=== PATIENT | female | born 1985 ===

== ENCOUNTER 2020-03-04 09:39 | Inpatient (IN) ==
[2020-03-04] MEDS ORDERED: Buffered Lidocaine 1% SYRIN 1 ml INTRADERM ONE (10:53)
[2020-03-04] MEDS ORDERED: Lactated Ringers 1000 ml BAG 1,000 ML IV ONE ×2 (10:53→12:04)
[2020-03-04] MEDS ORDERED: Lactated Ringers 1000 ml BAG 1,000 ML IV SCH ×3 (11:00→13:00)
[2020-03-04 11:23] LABS: ABS Monocytes 0.8 10^3/ul (0-0.8); ABS Neutrophils 7.5 10^3/ul (1.5-7.7); Eosinophil % 0.3 %; Hematocrit 38 % (35-47); Hemoglobin 13.2 g/dL (12.0-16.0); Lymphocyte % 10.5 %; Mean Corpuscular HGB Conc 35 g/dL (31-36); Mean Corpuscular Hemoglobin 32 pg (27-31); Mean Corpuscular Volume 91 fL (80-97); Mean Platelet Volume 9.1 fL (7.4-10.4); Platelet Count 206 10^3/uL (150-450); Red Blood Count 4.16 10^6 /uL (3.70-4.87); Red Cell Distribution Width 14 % (10-15); White Blood Count 9.3 10^3/uL (3.5-10.8)
[2020-03-04] MEDS ORDERED: OBEPIDURAL 250 ML EPIDURAL ONE (11:26)
[2020-03-04 11:53] LABS: Urine Benzodiazepine Screen None Detected (None Detect); Urine Cannabinoids Screen None Detected (None Detect); Urine Opiates Screen None Detected (None Detect)
[2020-03-04] MEDS ORDERED: Lactated Ringers 1000 ml BAG 500 ML IV PRN ×2 (12:04)
[2020-03-04] MEDS ORDERED: Sodium Citrate/Citric Acid LIQ 15 ML UDC PO PRN (12:04)
[2020-03-04] MEDS ORDERED: Phenylephrine 40 mcg/mL 10mL (400mcg) SYRINGE IV PUSH PRN ×2 (12:04)
[2020-03-04] MEDS ORDERED: OBEPIDURAL 250 ML EPIDURAL SCH (13:00)
[2020-03-04] MEDS ORDERED: Oxytocin in LR 20 UNITS/1,000 ML BAG IVPB SCH (17:00)
[2020-03-05] MEDS ORDERED: fentaNYL 100 mcg/2 ml 50 MCG/ML VIAL ONE ×3 (00:59→06:38)
[2020-03-05] MEDS ORDERED: Lidocaine 2% w/ EPI 1:200,000 MPF 20 ML SDV VIAL ONE ×3 (01:15→06:54)
[2020-03-05] MEDS ORDERED: Ampicillin ADVAN 2 GM in NS 0.9% 100 ml BAG 100 ML IVPB SCH (01:30)
[2020-03-05] MEDS: Gentamicin ADULT 360 MG in NS 0.9% 100 ml BAG 100 ML IVPB SCH (02:09)
[2020-03-05] MEDS ORDERED: ceFOXitin 2 GM IVPREMIX 2 GM/50 ML BAG ONE (05:42)
[2020-03-05] MEDS ORDERED: ceFOXitin 2 GM IVPREMIX 2 GM/50 ML BAG IVPB ONE (05:59)
[2020-03-05] MEDS ORDERED: Sodium Bicarbonate 8.4% VIAL 1 MEQ/ML 50 ml VIAL (50 meq) ONE (06:29)
[2020-03-05] MEDS ORDERED: Oxytocin 10 UNITS/ML 1 ML VIAL ONE ×2 (06:30→07:11)
[2020-03-05] MEDS ORDERED: Chloroprocaine 3% 20 ml VIAL ONE (06:36)
[2020-03-05] MEDS ORDERED: Phenylephrine 40 mcg/mL 10mL (400mcg) SYRINGE ONE (06:51)
[2020-03-05] MEDS ORDERED: Lidocaine 1% VIAL 10 MG/ML VIAL ONE (07:05)
[2020-03-05] MEDS ORDERED: Naloxone 0.4 mg VIAL 0.4 mg/ml 1 ml VIAL IV PRN ×2 (07:06→18:01)
[2020-03-05] MEDS ORDERED: Ondansetron 4 mg VIAL 2 MG/ML 2 ml VIAL IV PRN (07:06)
[2020-03-05] MEDS ORDERED: fentaNYL 100 mcg/2 ml 50 MCG/ML VIAL IV PRN (07:06)
[2020-03-05] MEDS ORDERED: DiMENhydriNATE IV 50 mg/ml 1 ml VIAL ONE (07:08)
[2020-03-05] MEDS ORDERED: Witch Hazel PAD JAR TOPICAL PRN ×2 (07:35→07:37)
[2020-03-05] MEDS ORDERED: Glycerin ADULT 2.4 gm SUPP PR PRN ×2 (07:35→07:37)
[2020-03-05] MEDS ORDERED: Dibucaine 1% OINT 28.35 GM TUBE PR PRN ×2 (07:35→07:37)
[2020-03-05] MEDS ORDERED: Lactated Ringers 1000 ml BAG 1,000 ML IV SCH ×2 (08:00)
[2020-03-05] MEDS: Ampicillin ADVAN 2 GM in NS 0.9% 100 ml BAG 100 ML IVPB SCH ×3 (10:35→23:14)
[2020-03-05] MEDS ORDERED: Oxycodone IR 10 mg TAB (NF) PO PRN (18:03)
[2020-03-06] MEDS: Gentamicin ADULT 360 MG in NS 0.9% 100 ml BAG 100 ML IVPB SCH (02:20)
[2020-03-06] MEDS: Ampicillin ADVAN 2 GM in NS 0.9% 100 ml BAG 100 ML IVPB SCH (05:03)
[2020-03-06 06:51] LABS: ABS Monocytes 0.8 10^3/ul (0-0.8); ABS Neutrophils 13.3 10^3/ul (1.5-7.7); Eosinophil % 0.2 %; Hematocrit 29 % (35-47); Hemoglobin 9.9 g/dL (12.0-16.0); Lymphocyte % 6.8 %; Mean Corpuscular HGB Conc 34 g/dL (31-36); Mean Corpuscular Hemoglobin 31 pg (27-31); Mean Corpuscular Volume 91 fL (80-97); Mean Platelet Volume 9.1 fL (7.4-10.4); Platelet Count 175 10^3/uL (150-450); Red Blood Count 3.24 10^6 /uL (3.70-4.87); Red Cell Distribution Width 14 % (10-15); White Blood Count 15.2 10^3/uL (3.5-10.8)
[2020-03-08] MEDS ORDERED: Scopolamine PATCH Remove NOTE PATCH OFF ONE (07:07)
[2020-03-08 07:41] VITALS: BP 114/61
== END 2020-03-08 13:35 | disposition home or self-care (01) | DRG 540 ==
LOC: MCHOBOUT 09:39 → MCHOB 10:45
PROVIDERS: ADMIT Midwife; ATTEND Obstetrics & Gynecology